=== PATIENT | female | born 1965 | race Caucasian/White ===

== ENCOUNTER 2018-06-21 01:40 | Observation (INO) | payer BC ==
[~2018-06-21] VITALS: Ht 157.5 cm; Wt 61.2 kg
[2018-06-21] VITALS (12 sets, daily range): BP systolic 85–121; BP diastolic 40–77
[~2018-06-21 01:40] MED LIST: ALB6.7R INH; DESV50TA9 PO; ESTR0.62 PO; ESTR1PAT97 TD; ESTR1VAG6 VG; IBUP800T37 PO; PER PO; PROG200C PO; SULF-198 PO
[2018-06-21] MEDS ORDERED: METOCLOPRAMIDE 10 MG/2 ML SDV ONE (05:47)
[2018-06-21] MEDS ORDERED: LIDOCAINE MPF 1% 5 ML VIAL ONE (05:47)
[2018-06-21] MEDS ORDERED: ONDANSETRON 4 MG/2 ML VIAL ONE (05:47)
[2018-06-21] MEDS ORDERED: DEXAMETHASONE SOD 4 MG/ML VIAL ONE (05:47)
[2018-06-21] MEDS ORDERED: PROPOFOL EMUL(*) 10MG/ML 20 ML 20 ML ONE (05:47)
[2018-06-21] MEDS ORDERED: MIDAZOLAM 2 MG/2 ML VIAL IVP PRN (07:55)
[2018-06-21] MEDS ORDERED: LIDOCAINE/SOD BICARB 8.4% SYR ID ONE (07:55)
[2018-06-21] MEDS ORDERED: NORMOSOL R SOLN(*) 1000 ML BAG 1,000 ML IV PRN (07:55)
[2018-06-21] MEDS ORDERED: FAMOTIDINE 20 MG TAB PO ONE (07:55)
[2018-06-21] MEDS ORDERED: fentaNYL CITR 100 MCG/2 ML AMP ONE (09:01)
[2018-06-21] MEDS ORDERED: ROPIVACAINE 0.2% 20 ML VIAL ONE (09:44)
[2018-06-21] MEDS ORDERED: VASOPRESSIN 20 UNIT/ML VIAL ONE (09:46)
[2018-06-21] MEDS ORDERED: ESTROGENS CONJ VAG CREAM 30 GM TUBE PV ONE (09:46)
[2018-06-21] MEDS ORDERED: NS(*) 0.9% 10 ML VIAL 50 ML ONE (09:46)
[2018-06-21] MEDS ORDERED: ACETAMINOPHEN(*)1000 MG/100 ML 100 ML IVPB ONE (10:16)
[2018-06-21] MEDS ORDERED: ePHEDrine 25 MG/5 ML DISP.SYR IVP ONE (10:50)
[2018-06-21] MEDS ORDERED: MANNITOL* (20%)100 GM/500ML BG 500 ML IVPB ONE (11:07)
--- NOTE | 2018-06-21 11:36 | Post Operative Note ---
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
--- NOTE | 2018-06-21 12:04 | OPERATIVE REPORT 1 ---
EVENT DATE: June 21, 2018 SURGEON: Nathan Sexton MD ANESTHESIOLOGIST: Maury Riojas MD ANESTHESIA: General LMA. PREOPERATIVE DIAGNOSES 1. Stress urinary incontinence. 2. Cystocele. POSTOPERATIVE DIAGNOSIS 1. Stress urinary incontinence. 2. Cystocele. PROCEDURES PERFORMED 1. Anterior colporrhaphy. 2. Transobturator mid urethropexy. ESTIMATED BLOOD LOSS 50 cc. FLUIDS 1700 cc IV crystalloids. FINDINGS Proximal vaginal cystocele, normal appearing bladder. No visible injuries. Ureteral patency. PROCEDURE IN DETAIL The patient was brought to the operating room with a working IV and placed in the dorsal supine position. She was placed under general LMA anesthesia and moved to the dorsal lithotomy position. The anterior vagina was inspected and it was deemed necessary to perform an anterior colporrhaphy as the proximal anterior vaginal wall had laxity and was prolapsing into the vagina, approximately grade 2. Therefore, the area was demarcated and infiltrated with a diluted Pitressin solution. A linear incision was made along the length of the defect up to the distal vagina that was approaching the bladder neck. The vagina mucosa was dissected away using the [place] retractor for exposure. It was dissected away underlying endopelvic fascia bilaterally. Once adequately dissected, the defect was reduced with a purse string stitch followed by Radha plication stitches along the length of the defect that ultimately re-supported the bladder. The excessive vaginal mucosa was trimmed away and the repair was performed with a 2-0 Vicryl in a running locking fashion. Once completely sutured and this was hemostatic, attention was then turned to the sling procedure, in which the mid urethra was identified with the aid of palpating below the urethra, finding the Lee bulb and following this to the distal urethra. It was grasped with Allis clamps and infiltrated with local anesthetic. A linear incision was made along the length of the mid urethra and then using the tenotomy scissors dissection laterally at a 45-degree angle was performed. The legs were ensured to be in a right angle configuration. The same procedure was followed on the contralateral side and then further blunt dissection was performed with finger. Puncture incision was made overlying the transobturator fossa and while palpating the posterior transobturator membrane, a hook was passed through the groin incision through the transobturator membrane rotated to 45 degrees and continued its journey into the vaginal dissection. Same procedure was followed on the contralateral side and the sling was left intracorporeal while the cystoscopy was performed. The bladder was fully inspected and found to be without injury. Both ureters were observed to have an excellent urine jet, confirming ureteral patency. The bladder was again drained. Lee catheter was replaced. The sling was drawn up through the dissection and approximated against the urethra with the aid of a [place] clamp, clamping a 1 cm segment of the sling material. The outer sheaths were removed and the sling was adjusted in order to accommodate a curved [place] scissor to easily pass beneath the sling material without tension. Once this was completed, excess mesh was trimmed from the groin. The incision was repaired with 2-0 Vicryl in a running locking fashion. The vagina was packed with a Kerlix sponge moistened with Premarin cream. She tolerated the procedure very well. Sponge, lap, needle and instruments were all correct x3. She was awakened from general anesthesia in stable condition and taken to recovery. CAREY
[2018-06-21] MEDS ORDERED: ACETAMINOPHEN 325 MG TAB PO PRN (12:20)
[2018-06-21] MEDS ORDERED: SIMETHICONE 80 MG CHEW CHEW PRN (12:20)
[2018-06-21] MEDS ORDERED: ZOLPIDEM TARTRATE 10 MG TAB PO PRN (12:20)
[2018-06-21] MEDS ORDERED: ONDANSETRON 4 MG/2 ML VIAL IV PRN (12:20)
[2018-06-21] MEDS ORDERED: PROMETHAZINE 25 MG/ML 1 ML AMP IVP PRN (12:20)
[2018-06-21] MEDS ORDERED: BELLADONNA ALK/OPIUM 60MG SUPP PR PRN (12:20)
[2018-06-21] MEDS ORDERED: KETOROLAC 15 MG/ML VIAL ONE (12:29)
[2018-06-21] MEDS: DLR(*) 1000 ML BAG 1,000 ML IV PRN ×2 (13:34→20:20)
[2018-06-21] MEDS: APAP/HYDROCODONE 325/5 TAB PO PRN ×2 (16:12→21:02)
[2018-06-21] MEDS: FAMOTIDINE 20 MG TAB PO SCH (20:20)
[2018-06-21] MEDS: IBUPROFEN 800 MG TAB PO PRN (20:20)
[2018-06-22 00:14] VITALS: BP 89/46
[2018-06-22] MEDS: DLR(*) 1000 ML BAG 1,000 ML IV PRN (02:28)
[2018-06-22 04:22] VITALS: BP 86/46
[2018-06-22] MEDS: IBUPROFEN 800 MG TAB PO PRN (04:27)
[2018-06-22 07:11] LABS: PLATELET COUNT, AUTOMATED 174 K/uL (150-450)
[2018-06-22] MEDS: APAP/HYDROCODONE 325/5 TAB PO PRN (08:06)
--- NOTE | 2018-06-22 08:30 | OB/GYN Progress Note ---
OB Subjective Progress Notes Subjective Doing well. Pain well controlled and ambulating. Catheter bothering her. GI: NEG Nausea : Voiding Well Pain: Mild OB Objective Physical Exam Vital Signs Date Time Temp Pulse Resp B/P (MAP) Pulse Ox O2 Delivery O2 Flow Rate FiO2 06/22/18 04:30 92 Room Air 06/22/18 04:22 97.7 70 15 86/46 (59) 0.5 Intake and Output 06/22/18 07:00 Intake Total 4445 ml Output Total 1400 ml Balance 3045 ml Intake Oral 480 ml IV Total 3965 ml Output Urine Total 1400 ml General Appearance: Alert/Awake/No Acute Distress Neurological: No Gross deficits Eyes: Normal Extraocular Movement & Vison Cardiovascular: Normal Rhythm & Peripheral Pulses, Regular Rate and Rhythm Respiratory: No Respiratory Distress, Clear to Auscultation Integumentary: Skin Intact without Lesions or Rash Psychological: Alert & Oriented X3, Appropriate Mood & Affect Result Diagram: 06/22/18 0635 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 Will remove catheter today and do bladder testing. Bladder training. Home today. F/U at 2 weeks. Home on Bactrim DS. (2) Cystocele, midline ANI BURR MD Jun 22, 2018 08:30
[2018-06-22] MEDS ORDERED: SULF1TAB24 PO (08:32)
[2018-06-22] MEDS ORDERED: IBUP800T37 PO (08:32)
--- NOTE | 2018-06-22 08:33 | Short(Outpt) Discharge Summary ---
Discharge Summary Reason for Hosp/Final Diag: (1) JANAY (stress urinary incontinence, female) Hospital Course & Plan: s/p midurethral sling doing well. Will remove catheter today and do bladder testing. Bladder training. Home today. F/U at 2 weeks. Home on Bactrim DS. 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 Copies to: ANI BURR MD ; ANI BURR MD Jun 22, 2018 08:33
[2018-06-22 08:34] VITALS: BP 96/56
[2018-06-22] MEDS: FAMOTIDINE 20 MG TAB PO SCH (08:43)
== END 2018-06-22 08:32 | disposition home or self-care (01) ==
LOC: OR 01:40 → PED 13:05
PROVIDERS: ADMIT Obstetrics & Gynecology; ATTEND Obstetrics & Gynecology
DX: N39.3 Stress incontinence (female) (male) (principal); N81.10 Cystocele, unspecified
CPT/HCPCS: 36415; 51990; 57240; 85025; 96372; C1771; G0378; J0131; J1100; J1885; J2001; J2405; J2704; J2765; J2795; J3010; J3490